=== PATIENT | male | born 1935 | race Caucasian/White ===

== ENCOUNTER 2017-01-09 08:01 | Observation (INO) | payer MEDICARE, BC ==
--- NOTE | ~2017-01-09 | HP ---
History And Physical [facility] [address] [place]. [address] NAME: DWAYNE GLORIA : 35 STATUS : ADM Martina PAT#: [id number] AGE: 81 ADM/REG DATE : 01/09/17 MR#: [id number] REPORT SERV DATE: 01/09/17 DICTATED BY: FLAVIA CABRERA DATE: 01/09/17 REPORT STATUS : Draft TRANSCRIBED BY: MODL DATE: 01/09/17 DATE OF ADMISSION: 01/09/2017 SLOTS MANAGER: Paola, Joy, [place]. CHIEF COMPLAINT: Chest pressure. HISTORY OF PRESENT ILLNESS: A very pleasant 81-year-old white gentleman with known history of CAD per patient's report. Reportedly, the patient underwent an arteriogram at [facility] in approximately 2010 revealing a possibly total occlusion of his RCA with left disease of 40% to 50%, will obtain records. The patient states that he awoke this morning around 0400 with some substernal chest pressure that did not radiate elsewhere. He states his left hand might have gone numb. He denies any shortness of breath, nausea, dizziness, or belching with the incident. He was somewhat diaphoretic. At its most intense, he rates the chest pain a 9/10. At time of interview in the ER, he is pain free. He states the episode lasted approximately 30 minutes in duration. He did drink a small amount of Coke to see if he could belch, but he could not. He denies taking any additional aspirin or having nitroglycerin available to him. The patient confirms two events of a right DVT in 2009 and most recently 11/2016 for which he is being treated with Coumadin with a therapeutic INR of 2.6 at this institution. The patient denies history of heart attack, stroke, or pulmonary embolus. The patient denies any recent fever or chills. Describes occasional palpitations. No syncopal episodes. No PND or orthopnea. 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 PAST MEDICAL HISTORY: 1. 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 2. Hypertension. 3. Cholesterol per PCP. 4. AODM. 5. History of a right-sided DVT to the lower extremity, now on Coumadin. 6. 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 PAST SURGICAL HISTORY: 1. Lumbar surgery x3. 2. Cholecystectomy. 3. Partial colectomy for ulcerative disease and small-bowel obstructions. 4. These are removed with partial colectomy. 5. Tonsillectomy. History And Physical [address] [place]. [address] NAME: DWAYNE GLORIA : 35 STATUS : ADM Martina PAT#: [id number] AGE: 81 ADM/REG DATE : 01/09/17 MR#: [id number] REPORT SERV DATE: 01/09/17 DICTATED BY: FLAVIA CABRERA DATE: 01/09/17 REPORT STATUS : Draft TRANSCRIBED BY: ZEUS DATE: 01/09/17 6. Appendectomy. 7. Cataract repair. 8. Right rotator cuff surgery x4. SOCIAL HISTORY: He is with three children. 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 He and his walked four to five times weekly at eased gait for 45 minutes approximately two miles, most recently last week, but currently limited due to his lower extremity clot. Denies tobacco, alcohol, or illicits. FAMILY HISTORY: Brother with CAD and stents at 76, remains alive at 79. REVIEW OF SYSTEMS: A 14-point review of systems performed, significant for HPI including patient reports December INR of 2.3 with his PCP's office. He has his INR checked on a monthly basis. Otherwise, complete review of systems obtained and negative. ALLERGIES: MORPHINE, NAUSEA; CODEINE, ITCHING. HOME MEDICATIONS: Amlodipine 5 mg nightly, lisinopril/hydrochlorothiazide 20/12.5 twice daily, carvedilol 6.25 twice daily, albuterol two puffs twice daily, Flovent two puffs twice daily p.r.n., ibuprofen p.r.n., potassium 10 mEq twice weekly, Flomax 0.4 mg nightly, Fergon 240 twice weekly, aspirin 81 mg twice daily, glipizide 2.5 twice daily, Coumadin 6 mg at bedtime, vitamin D 4000 units at bedtime, probiotic daily, Artificial Tears p.r.n., Tums p.r.n. PHYSICAL EXAMINATION: VITAL SIGNS: Blood pressure 128/55, pulse 52, respirations 16, temperature 98.0, O2 saturation 99% on room air. GENERAL: Cooperative, in no apparent distress. HEENT: Pupils 2 mm, sclera nonicteric. Nares patent. Moist mucous membranes. No xanthelasma. NECK: Trachea midline, no thyromegaly. No JVD. No bruits. LYMPH: No cervical lymphadenopathy. No supraclavicular lymphadenopathy. RESPIRATORY: Unlabored respirations. Breath sounds clear bilaterally to posterior auscultation. No wheezes or rhonchi. CARDIOVASCULAR: Regular rate. No murmur, rub or gallop appreciated. Extremities without edema. Pulses 2+ bilaterally. ABDOMEN: Soft, nontender, nondistended, normal bowel sounds auscultated throughout. No organomegaly. SKIN: Warm, dry extremities. No pallor, or cyanosis. PSYCHIATRIC: Appropriate affect. Alert, oriented x3. LABORATORY DATA: Troponin 0.03 twice. Potassium 4.4, BUN 25, creatinine 1.32, glucose 145, magnesium 1.7. WBC 5.8, hemoglobin 12.8, hematocrit 36.0, platelet count 211,000. PT 27.9, INR 2.6. EKG, sinus rhythm, first-degree AV block. CTA of chest, no PE. History And Physical [address] [address] NAME: DWAYNE GLORIA : 35 STATUS : ADM Martian PAT#: [id number] AGE: 81 ADM/REG DATE : 01/09/17 MR#: [id number] REPORT SERV DATE: 01/09/17 DICTATED BY: FLAVIA CABRERA DATE: 01/09/17 REPORT STATUS : Draft TRANSCRIBED BY: ZEUS DATE: 01/09/17 ASSESSMENT AND PLAN: 1. Substernal chest pain in patient with risk factors and a probable coronary artery disease by patient's self report per cath in approximately 2010. The patient will be observed in the CPOU to rule out myocardial infarction with serial enzymes and serial EKGs and held n.p.o. for probable MPI today. The patient will be discharged home if low risk, no ischemia. If anything is suggestive of ischemia, Cardiology referral will be initiated. Otherwise, the patient will be asked to follow up with his local PCP and [facility] as warranted. 2. Coronary artery disease by report. Will obtain records from [place] [facility] and/or hospital. Continue home medications. 3. Hypertension. Monitor blood pressure and continue home medications. 4. Recent right lower extremity deep venous thrombosis, currently on Coumadin. INR 2.6 at this facility. The patient reports a history of previous right deep venous thrombosis in 2009. We will attempt to continue Coumadin, otherwise anticoagulant will need to be held should any further cardiac testing be required such as a cardiac catheterization. Most likely, the patient would need to be transitioned to heparin if that is the case. 5. Adult-onset diabetes mellitus, level 1 sliding scale correction. 6. Chronic borreliosis, followed at [facility] annually. Will attempt to obtain some records specific to most recent office visit. NHI/ZEUS Flavia Cabrera, TERESA, TANNING CONSULTANT-BC / [id number] CC: IVON Dixon JUNAID
[2017-01-09 06:31] LABS: BASOPHILS 0.9 %; BASOPHILS ABSOLUTE 0.05 10/3/uL (0.0-0.16); EOSINOPHILS 2.8 %; EOSINOPHILS ABSOLUTE 0.16 10/3/uL (0.0-0.53); ER CBC TAT 0 Hrs 03 Mins; HEMOGLOBIN 12.8 g/dL (13.6-17.8); IMMATURE GRANULOCYTES 0.2 %; IMMATURE GRANULOCYTES ABSOLUTE 0.01 10/3/uL (0.0-0.11); LYMPHOCYTES 26.3 %; LYMPHOCYTES ABSOLUTE 1.52 10/3/uL (0.67-4.30); MEAN CORPUS HGB CONC 35.6 g/dL (32.0-36.0); MEAN CORPUSCULAR HEMOGLOB 29.3 pg (26.0-34.0); MEAN CORPUSCULAR VOLUME 82.4 fL (80-100); MEAN PLATELET VOLUME 9.1 fL (9.2-13.0); MONOCYTES 12.7 %; MONOCYTES ABSOLUTE 0.73 10/3/uL (0.21-1.20); NEUTROPHILS 57.1 %; PLATELET COUNT 211 10/3/uL (150-400); RBC DISTRIBUTION WIDTH 13.6 % (12.0-16.0); RED CELL COUNT 4.37 10/6/uL (4.7-6.1); WHITE BLOOD CELLS 5.8 10/3/uL (4.5-10.5)
[2017-01-09 06:32] LABS: MANUAL DIFF NO %
[2017-01-09 06:39] LABS: INTERNATIONAL NORMAL RATI 2.6 UNITS (-); PARTIAL THROMBO TIME 36.3 SEC (22.5-37.2); PROTIME (NOT ORD) 27.9 SEC (12.0-14.5)
[2017-01-09 06:48] LABS: BUN (BLOOD UREA NITROGEN) 25 MG/DL (6-23); CALCIUM, SERUM 8.8 MG/DL (8.5-10.4); CHEST PAIN PROFILE TAT 0 Hrs 20 Mins; CHLORIDE, SERUM 102 MMOL/L (96-112); CO2 (CARBON DIOXIDE) 27 MMOL/L (24-34); CREATININE 1.32 MG/DL (0.70-1.30); GFR AFRICAN AMERICAN 58 ML/MIN (>=60); GFR NON AFRICAN AMERICAN 50 ML/MIN (>=60); GLUCOSE, SERUM 145 MG/DL (60-99); POTASSIUM, SERUM 4.4 MMOL/L (3.5-5.3); SODIUM, SERUM 138 MMOL/L (135-148); TROPONIN I 0.03 NG/ML (<0.05)
[2017-01-09] MEDS ORDERED: NORV5 PO (10:03)
[2017-01-09] MEDS ORDERED: PRINZIDE1 TA1 PO (10:04)
[2017-01-09] MEDS ORDERED: PROAIR HFA INH (10:04)
[2017-01-09] MEDS ORDERED: COREG6 PO (10:04)
[2017-01-09] MEDS ORDERED: KLOR-CON 1010 MEQ PO (10:05)
[2017-01-09] MEDS ORDERED: ADVIL PO (10:05)
[2017-01-09] MEDS ORDERED: FLOVENT110 INH (10:05)
[2017-01-09] MEDS ORDERED: FLOMAX4 PO (10:06)
[2017-01-09] MEDS ORDERED: ASAB PO (10:06)
[2017-01-09] MEDS ORDERED: FERGON240 MG PO (10:06)
[2017-01-09] MEDS ORDERED: GLUCXL2.5 PO (10:07)
[2017-01-09] MEDS ORDERED: COUMADIN6 MG PO (10:07)
[2017-01-09] MEDS ORDERED: VITAMIN D2000 UNIT PO (10:08)
[2017-01-09] MEDS ORDERED: REFRESH OPH (10:13)
[2017-01-09] MEDS ORDERED: PROBIOTIC PO (10:13)
[2017-01-09] MEDS ORDERED: TUMSROLL PO (10:14)
[2017-01-09] MEDS ORDERED: NTG150 SL (16:00)
== END 2017-01-09 16:30 | disposition home or self-care (01) ==
LOC: ER 08:01 → CDU1 11:15 → CDU2 11:16
PROVIDERS: Specialist
DX: R07.2 Precordial pain (principal); I25.10 Atherosclerotic heart disease of native coronary artery without angina pectoris; I10 Essential (primary) hypertension; E11.9 Type 2 diabetes mellitus without complications; J63.2 Berylliosis; Z90.49 Acquired absence of other specified parts of digestive tract; Z98.890 Other specified postprocedural states; Z88.5 Allergy status to narcotic agent; Z79.899 Other long term (current) drug therapy
CPT/HCPCS: 71010; 71275; 78452; 80048; 83735; 84484; 85025; 85610; 85730; 93005; 93017; 99285; A9270-GY; A9502; G0378; Q9967